=== PATIENT | male | born 1990 | race Caucasian/White ===

== ENCOUNTER 2020-09-06 19:19 | Emergency (ER) | payer SELFPAY ==
[2020-09-06] MEDS ORDERED: MORPHINE 4 MG/ML SYR ONE (20:07)
[2020-09-06] MEDS ORDERED: ONDANSETRON 4 MG (ODT) TAB ONE (20:07)
--- NOTE | 2020-09-06 20:26 | RAD REPORT ---
EXAM DESCRIPTION: RAD - Hand Right 3 View - 09/06/2020 8:15 pm CLINICAL HISTORY: Right hand pain status post injury FINDINGS: Comminuted fracture mid fifth metacarpal with mild to moderate displacement of fracture fr agments and angulation present at the fracture site. No dislocation.
[2020-09-06] MEDS ORDERED: LIDOCAINE 1% MPF 30 ML VIAL ONE (20:35)
--- NOTE | 2020-09-06 20:40 | ER ---
Nurse's Notes [facility] Name: Harmeet Calderón Age: 29 yrs Sex: Male : 1990 Arrival Date: 09/06/2020 Time: 19:21 Bed 8 Private MD: Diagnosis: Displaced fracture of base of other metacarpal bone Presentation: 09/06 19:32 Chief complaint: Patient states: he fell on his hand approx 30 mins ago injuring his bb right hand. Coronavirus screen: At this time, the client does not indicate any symptoms associated with coronavirus-19. Ebola Screen: No symptoms or risks identified at this time. Initial Sepsis Screen: Does the patient meet any 2 criteria? No. Patient's initial sepsis screen is negative. Does the patient have a suspected source of infection? No. Patient's initial sepsis screen is negative. Risk Assessment: Do you want to hurt yourself or someone else? Patient reports no desire to harm self or others. Onset of symptoms was September 06, 2020. 19:32 Method Of Arrival: Ambulatory bb 19:32 Acuity: WILFRID 4 bb Historical: - Allergies: 19:34 [place]; bb - Home Meds: 19:34 None [Active]; bb - PMHx: 19:34 meningitis; bb - PSHx: 19:34 Knee surgery; hip surgery; bb - Immunization history:: Adult Immunizations up to date. - Social history:: Smoking status: Patient reports the use of cigarette tobacco products, smokes one pack cigarettes per day. Screenin:43 Abuse screen: Denies threats or abuse. Nutritional screening: No deficits noted. ea Tuberculosis screening: No symptoms or risk factors identified. Fall Risk None identified. Assessment: 19:42 General: Appears in no apparent distress. Behavior is appropriate for age. Pain: ea Complains of pain in right hand. Neuro: Level of Consciousness is awake, alert, obeys commands, Oriented to person, place, time, situation. Cardiovascular: Patient's skin is warm and dry. Respiratory: Airway is patent Respiratory effort is even, unlabored, Respiratory pattern is regular, symmetrical. Derm: Skin is pink, warm \T\ dry. Musculoskeletal: Swelling present in medial aspect of right hand. 20:57 Reassessment: Patient and/or family updated on plan of care and expected duration. Pain ea level reassessed. Patient is alert, oriented x 3, equal unlabored respirations, skin warm/dry/pink. Discharge instruction given to patient, verbalized the understanding of instruction. Pt left ED ambulatory tolerating well. Vital Signs: 19:32 Weight 108.86 kg (R); Height 6 ft. 1 in. (185.42 cm) (R); Pain 3/10; bb 19:38 BP 150 / 118; Pulse 62; Resp 18; Temp 98.0; Pulse Ox 99% ; ea 20:30 BP 146 / 84; Pulse 79; Resp 18; Pulse Ox 99% ; ea 19:32 Body Mass Index 31.66 (108.86 kg, 185.42 cm) bb ED Course: 19:21 Patient arrived in ED. bp1 19:27 Eleuterio Collado PA is PHCP. jmm 19:27 Frank Curry MD is Attending Physician. jmm 19:33 Triage completed. bb 19:34 Arm band placed on Patient placed in an exam room, on a stretcher, on pulse oximetry. bb Family accompanied patient. 19:38 Angelina Angeles, RN is Primary Nurse. ea 19:44 Patient has correct armband on for positive identification. Bed in low position. Call ea light in reach. Adult w/ patient. 20:14 Hand Right 3 View XRAY In Process Unspecified. EDMS 20:39 Petar Mars MD is Referral Physician. jmm 20:53 Orthoglass splint: Ulnar gutter/Boxer splint applied on right forearm. 4 20:58 No provider procedures requiring assistance completed. Patient did not have IV access ea during this emergency room visit. Administered Medications: 19:57 Drug: Zofran (Ondansetron) 4 mg Route: PO; ea 20:44 Follow up: Response: No adverse reaction ea 19:58 Drug: morphine 4 mg {Note: RASS 0.} Route: IM; Site: left deltoid; ea 20:43 Follow up: Response: No adverse reaction; RASS: Alert and Calm (0) ea Outcome: 20:40 Discharge ordered by . jmm 20:58 Discharged to home ambulatory, with family. ea 20:58 Condition: stable 20:58 Discharge instructions given to patient, Instructed on discharge instructions, follow up and referral plans. medication usage, Demonstrated understanding of instructions, follow-up care, medications, Prescriptions given X 1. 20:59 Patient left the ED. ea Signatures: Dispatcher [employer] EDMS Eleuterio Collado PA PA jmm Ballard, Brenda RN RN Angelina Bownes RN RN ea Huhn, Donald [facility] Wendy Patrick [facility]
--- NOTE | 2020-09-06 20:41 | EDPHYS ---
Physician Documentation [facility] Name: Harmeet Calderón Age: 29 yrs Sex: Male : 1990 Arrival Date: 09/06/2020 Time: 19:21 Bed 8 Private MD: ED Physician Frank Curry HPI: 09/06 19:35 This 29 yrs old Male presents to ER via Ambulatory with complaints of Hand Injury. jmm 19:35 The patient or guardian reports injury, pain. Onset: The symptoms/episode jmm began/occurred acutely, just prior to arrival. Modifying factors: The symptoms are alleviated by nothing, the symptoms are aggravated by movement. Associated signs and symptoms: Pertinent negatives: decreased sensation distally, numbness distally, tingling distally. Patient complains of right hand pain after a fall which occurred just prior to arrival. Patient states he tripped and fell onto his right hand. Denies other injury. . Historical: - Allergies: 19:34 [place]; bb - Home Meds: 19:34 None [Active]; bb - PMHx: 19:34 meningitis; bb - PSHx: 19:34 Knee surgery; hip surgery; bb - Immunization history:: Adult Immunizations up to date. - Social history:: Smoking status: Patient reports the use of cigarette tobacco products, smokes one pack cigarettes per day. ROS: 19:35 Constitutional: Negative for fever, chills, and weight loss, Cardiovascular: Negative jmm for chest pain, palpitations, and edema, Respiratory: Negative for shortness of breath, cough, wheezing, and pleuritic chest pain. 19:35 MS/extremity: Positive for injury or acute deformity, pain. 19:35 All other systems are negative. Exam: 19:35 Constitutional: This is a well developed, well nourished patient who is awake, alert, jmm and in no acute distress. Head/Face: atraumatic. Eyes: EOMI, no conjunctival erythema appreciated ENT: Moist Mucus Membranes Neck: Trachea midline, Supple Chest/axilla: Normal chest wall appearance and motion. Cardiovascular: Regular rate and rhythm. No edema appreciated Respiratory: Normal respirations, no respiratory distress appreciated Abdomen/GI: Non distended, soft Back: Normal ROM Skin: General appearance color normal 19:35 Musculoskeletal/extremity: swelling noted to the right hand at the 5th mcp. 19:35 Skin: Appearance: Color: normal in color. 19:35 Neuro: Orientation: is normal, Mentation: is normal, Memory: is normal. 19:35 Psych: Behavior/mood is pleasant, cooperative. Vital Signs: 19:32 Weight 108.86 kg (R); Height 6 ft. 1 in. (185.42 cm) (R); Pain 3/10; bb 19:38 BP 150 / 118; Pulse 62; Resp 18; Temp 98.0; Pulse Ox 99% ; ea 20:30 BP 146 / 84; Pulse 79; Resp 18; Pulse Ox 99% ; ea 19:32 Body Mass Index 31.66 (108.86 kg, 185.42 cm) bb Procedures: 20:36 Splinting: Splint applied to right hand using ulnar gutter. applied by tech. Examined jmm by me, post splint application: neurovascular intact, 2+ distal pulses palpable, brisk capillary refill noted, Patient tolerated well. MDM: 19:32 Patient medically screened. jmm 20:37 Data reviewed: vital signs, nurses notes. Counseling: I had a detailed discussion with ritu the patient and/or guardian regarding: the historical points, exam findings, and any diagnostic results supporting the discharge/admit diagnosis, radiology results, the need for outpatient follow up, to return to the emergency department if symptoms worsen or persist or if there are any questions or concerns that arise at home. ED course: Hemtoma block using 1% lidocaine provided partient relief of pain. Betadine was initially applied and 25 gauge needle inserted using sterile technique. Blood was aspirated and 1 ml of lidocaine was injected. Patient was advised of the need to follow up with hand surgery within 1 week for further evaluation. Patient was otherwise given strict return precautions. patient understood and agrees with the plan of care. . 09/06 19:47 Order name: Hand Right 3 View XRAY; Complete Time: 20:40 snw 09/06 20:20 Order name: Ulnar Gutter splint; Complete Time: 20:54 ritu Administered Medications: 19:57 Drug: Zofran (Ondansetron) 4 mg Route: PO; ea 20:44 Follow up: Response: No adverse reaction ea 19:58 Drug: morphine 4 mg {Note: RASS 0.} Route: IM; Site: left deltoid; ea 20:43 Follow up: Response: No adverse reaction; RASS: Alert and Calm (0) lauryn Disposition: 09/07 05:20 Co-signature as Attending Physician, Frank Curry MD I agree with the assessment and tw4 plan of care. Disposition: 09/06/20 20:40 Discharged to Home. Impression: Displaced fracture of base of other metacarpal bone. - Condition is Stable. - Discharge Instructions: Metacarpal Fracture. - Prescriptions for Ultracet 37.5- 325 mg Oral Tablet - take 1 tablet by ORAL route every 6 hours - for up to 5 days; do not exceed 8 tablets per day.; 20 tablet. - Medication Reconciliation Form, Thank You Letter, Antibiotic Education, Prescription Opioid Use, Work release form form. - Follow up: Private Physician; When: 2 - 3 days; Reason: Recheck today's complaints, Continuance of care, Re-evaluation by your physician. Follow up: Petar Mars MD; When: 2 - 3 days; Reason: Recheck today's complaints, Continuance of care, Re-evaluation by your physician. - Notes: No heavy lifting until 09/11/20 Signatures: Dispatcher [employer] EDMS Eleuterio Collado PA PA jmm Ballard, Brenda, RN RN Angelina Bowens RN RN ea Wadley, Terrence, MD MD tw4 Corrections: (The following items were deleted from the chart) 09/06 20:59 20:40 09/06/2020 20:40 Discharged to Home. Impression: Displaced fracture of base of ea other metacarpal bone. Condition is Stable. Forms are Medication Reconciliation Form, Thank You Letter, Antibiotic Education, Prescription Opioid Use. Follow up: Private Physician; When: 2 - 3 days; Reason: Recheck today's complaints, Continuance of care, Re-evaluation by your physician. Follow up: Petar Mars; When: 2 - 3 days; Reason: Recheck today's complaints, Continuance of care, Re-evaluation by your physician. ritu
[2020-09-06 21:14] VITALS: TEMP 98; O2SAT 99
[2020-09-06 21:16] VITALS: BP 146/84
== END 2020-09-06 20:59 | disposition home or self-care (01) ==
LOC: ER 19:19
PROC: 2W3CX1Z Immobilization of Right Lower Arm using Splint (ICD-10-PCS; principal; 2020-09-06)
DX: S62.316A Displaced fracture of base of fifth metacarpal bone, right hand, initial encounter for closed fracture (principal); W01.0XXA Fall on same level from slipping, tripping and stumbling without subsequent striking against object, initial encounter; Y93.9 Activity, unspecified; Y92.9 Unspecified place or not applicable; Z88.5 Allergy status to narcotic agent; F17.210 Nicotine dependence, cigarettes, uncomplicated
CPT/HCPCS: 96372; 99284

== ENCOUNTER 2020-09-08 21:16 | Emergency (ER) | payer SELFPAY ==
--- NOTE | 2020-09-08 22:55 | ER ---
Nurse's Notes [facility] Name: Harmeet Calderón Age: 29 yrs Sex: Male : 1990 Arrival Date: 09/08/2020 Time: 21:18 Bed 13 Private MD: Diagnosis: Encounter for fitting and adjustment of other devices Presentation: 09/08 21:29 Chief complaint: Patient states: Here on Wednesday for a broken finger. States the ll1 swelling to his hand has gotten worse since splint placement. Fingers "turned blue" about 30 min. NEGATIVE SPOTTER. Tried loosening the guillermo wrap without relief. Denies pain at this time. Coronavirus screen: Client denies travel out of the [place] in the last 14 days. At this time, the client does not indicate any symptoms associated with coronavirus-19. Ebola Screen: Patient denies travel to an Ebola-affected area in the 21 days before illness onset. Initial Sepsis Screen: Does the patient meet any 2 criteria? No. Patient's initial sepsis screen is negative. Does the patient have a suspected source of infection? Yes: Bone or joint infection. Risk Assessment: Do you want to hurt yourself or someone else? Patient reports no desire to harm self or others. Onset of symptoms was September 08, 2020. 21:29 Method Of Arrival: Ambulatory ll1 21:29 Acuity: WILFRID 3 ll1 Historical: - Allergies: 21:32 [place]; ll1 - PMHx: 21:32 meningitis; ll1 - PSHx: 21:32 Knee surgery; hip surgery; ll1 - Immunization history:: Flu vaccine is not up to date. - Social history:: Smoking status: Patient denies any tobacco usage or history of. Screenin:00 Abuse screen: Denies threats or abuse. Denies injuries from another. aj1 22:00 Nutritional screening: No deficits noted. Tuberculosis screening: No symptoms or risk aj1 factors identified. 23:07 Fall Risk None identified. aj1 Assessment: 22:00 General: Appears in no apparent distress. uncomfortable, Behavior is calm, cooperative, aj1 appropriate for age. Pain: Complains of pain in right hand. Neuro: Level of Consciousness is awake, alert, obeys commands, Oriented to person, place, time, situation. Cardiovascular: Patient's skin is warm and dry. Respiratory: Airway is patent Respiratory effort is even, unlabored, Respiratory pattern is regular, symmetrical. GI: No signs and/or symptoms were reported involving the gastrointestinal system. : No signs and/or symptoms were reported regarding the genitourinary system. EENT: No signs and/or symptoms were reported regarding the EENT system. Derm: Skin is pink, warm \\T\\ dry. Musculoskeletal: Swelling present in right hand. Injury Description: Bruise sustained to right hand is purple. 23:06 Reassessment: Patient appears in no apparent distress at this time. No changes from aj1 previously documented assessment. Patient and/or family updated on plan of care and expected duration. Pain level reassessed. Patient is alert, oriented x 3, equal unlabored respirations, skin warm/dry/pink. Vital Signs: 21:29 BP 118 / 68; Pulse 61; Resp 17; Temp 98.1; Pulse Ox 97% ; Weight 108.86 kg; Height 6 ll1 ft. 1 in. (185.42 cm); Pain 0/10; 21:29 Body Mass Index 31.66 (108.86 kg, 185.42 cm) 1 ED Course: 21:18 Patient arrived in ED. ag3 21:32 Triage completed. ll1 21:32 Arm band placed on Patient placed in an exam room, on a stretcher. ll1 21:37 Frank Curry MD is Attending Physician. tw4 21:44 Savanna Watters, WALTER is Primary Nurse. aj1 21:56 Eleuterio Collado PA is PHCP. [facility] 22:00 Patient has correct armband on for positive identification. Bed in low position. Call [facility] light in reach. 22:00 No provider procedures requiring assistance completed. Patient did not have IV access aj during this emergency room visit. 22:51 Guillermo wrap to Right hand and Right wrist Orthoglass splint: Ulnar gutter/Boxer splint jp3 applied on right forearm. Administered Medications: No medications were administered Outcome: 22:55 Discharge ordered by . ritu 23:06 Discharged to home ambulatory, with family. aj1 23:06 Condition: good 23:06 Discharge instructions given to patient, Instructed on discharge instructions, follow up and referral plans. medication usage, Demonstrated understanding of instructions, follow-up care, medications, Prescriptions given X 1. 23:07 Patient left the ED. aj1 Signatures: Savanna Watters RN RN aj1 Eleuterio Collado PA PA jmm Wadley, Terrence, MD MD tw4 Brooks Wise jp3 [place] Wiley 3 Laurie Soriano, RN RN ll1 Corrections: (The following items were deleted from the chart) : 23:04 General: Appears in no apparent distress. uncomfortable, Behavior is calm, aj1 cooperative, appropriate for age, aj 23:04 Pain: [facility] Neuro: Level of Consciousness is awake, alert, obeys commands, Oriented to aj1 person, place, time, situation, aj 23:04 Cardiovascular: Patient's skin is warm and dry. aj1 [facility] 23:04 Respiratory: Airway is patent Respiratory effort is even, unlabored, Respiratory aj1 pattern is regular, symmetrical, aj 23:04 GI: No signs and/or symptoms were reported involving the gastrointestinal system. aj1 aj 23:04 : No signs and/or symptoms were reported regarding the genitourinary system. ajj1 : 23:04 EENT: No signs and/or symptoms were reported regarding the EENT system. aj1 [facility] 23:04 Derm: Skin is pink, warm \\T\\ dry. aj1 [facility] 23:04 Musculoskeletal: Swelling present in [facility] 23:04 Injury Description: Bruise sustained to right hand is purple, aj1 aj
--- NOTE | 2020-09-08 22:55 | EDPHYS ---
Physician Documentation [facility] Name: Harmeet Calderón Age: 29 yrs Sex: Male : 1990 Arrival Date: 09/08/2020 Time: 21:18 Bed 13 Private MD: ED Physician Frank Curry HPI: 09/08 21:37 This 29 yrs old Male presents to ER via Ambulatory with complaints of [place] hand. jmm 21:37 Onset: The symptoms/episode began/occurred acutely, 2 day(s) ago. Associated signs and jmm symptoms: Pertinent negatives: fever. This is a 29 year old male that presents to the ED with complaints of right hand pain. Patient suffered a fracture to his 5th metacarpal this past Wednesday. Patient became concerned today when he noticed bruising along with increased swelling. Historical: - Allergies: 21:32 [place]; ll1 - PMHx: 21:32 meningitis; ll1 - PSHx: 21:32 Knee surgery; hip surgery; ll1 - Immunization history:: Flu vaccine is not up to date. - Social history:: Smoking status: Patient denies any tobacco usage or history of. ROS: 21:37 Constitutional: Negative for fever, chills, and weight loss, Cardiovascular: Negative jmm for chest pain, palpitations, and edema, Respiratory: Negative for shortness of breath, cough, wheezing, and pleuritic chest pain. 21:37 MS/extremity: Positive for pain, swelling. 21:37 Skin: Positive for ecchymosis. 21:37 All other systems are negative. Exam: 21:37 Constitutional: This is a well developed, well nourished patient who is awake, alert, jmm and in no acute distress. Head/Face: atraumatic. Eyes: EOMI, no conjunctival erythema appreciated ENT: Moist Mucus Membranes Neck: Trachea midline, Supple Chest/axilla: Normal chest wall appearance and motion. Cardiovascular: Regular rate and rhythm. No edema appreciated Respiratory: Normal respirations, no respiratory distress appreciated Abdomen/GI: Non distended, soft Back: Normal ROM 21:37 Skin: ecchymosis noted to the mcp region of the right hand, no erythema or induration noted to the hand. 21:37 Neuro: Orientation: is normal, Mentation: is normal, Memory: is normal. 21:37 Psych: Behavior/mood is pleasant, cooperative. Vital Signs: 21:29 BP 118 / 68; Pulse 61; Resp 17; Temp 98.1; Pulse Ox 97% ; Weight 108.86 kg; Height 6 ll1 ft. 1 in. (185.42 cm); Pain 0/10; 21:29 Body Mass Index 31.66 (108.86 kg, 185.42 cm) ll1 Procedures: 22:53 Splinting: Splint applied to right hand using ulnar gutter. applied by tech. Examined jmm by me, post splint application: neurovascular intact, 2+ distal pulses palpable, brisk capillary refill noted, Patient tolerated well. MDM: 21:37 Patient medically screened. tw4 22:53 Data reviewed: vital signs, nurses notes. Counseling: I had a detailed discussion with ritu the patient and/or guardian regarding: the historical points, exam findings, and any diagnostic results supporting the discharge/admit diagnosis, the need for outpatient follow up, to return to the emergency department if symptoms worsen or persist or if there are any questions or concerns that arise at home. ED course: Compartments are soft, < 2 sec dist cap refill, I do not suspect compartment syndrome at this time. Patient advised to follow up with hand surgery and otherwise given strict return precautions. Patient understood and agrees with the plan of care. . 09/08 21:57 Order name: Ulnar Gutter splint; Complete Time: 22:52 ritu Administered Medications: No medications were administered Disposition: 09/09 06:59 Co-signature as Attending Physician, Frank Curry MD I agree with the assessment and tw4 plan of care. Disposition: 09/08/20 22:55 Discharged to Home. Impression: Encounter for fitting and adjustment of other devices. - Condition is Stable. - Discharge Instructions: Cast or Splint Care, Adult, Metacarpal Fracture. - Prescriptions for Valium 5 mg Oral Tablet - take 1 tablet by ORAL route every 8 hours As needed; 20 tablet. - Medication Reconciliation Form, Thank You Letter, Antibiotic Education, Prescription Opioid Use form. - Follow up: Private Physician; When: 2 - 3 days; Reason: Recheck today's complaints, Continuance of care, Re-evaluation by your physician. Signatures: Savanna Watters RN RN aj1 Eleuterio Collado PA PA jmm Wadley, Terrence, MD MD tw4 Laurie Soriano, RN RN ll1 Corrections: (The following items were deleted from the chart) 09/08 23:07 22:55 09/08/2020 22:55 Discharged to Home. Impression: Encounter for fitting and aj1 adjustment of other devices. Condition is Stable. Forms are Medication Reconciliation Form, Thank You Letter, Antibiotic Education, Prescription Opioid Use. Follow up: Private Physician; When: 2 - 3 days; Reason: Recheck today's complaints, Continuance of care, Re-evaluation by your physician. ritu
[2020-09-09 00:31] VITALS: BP 118/68; TEMP 98.1; O2SAT 97
== END 2020-09-08 23:07 | disposition home or self-care (01) ==
LOC: ER 21:16
PROC: 2W3CX1Z Immobilization of Right Lower Arm using Splint (ICD-10-PCS; principal; 2020-09-08)
DX: S62.306G Unspecified fracture of fifth metacarpal bone, right hand, subsequent encounter for fracture with delayed healing (principal); Z88.5 Allergy status to narcotic agent
CPT/HCPCS: 99283

== ENCOUNTER 2021-05-10 18:59 | Emergency (ER) | payer SELFPAY ==
--- NOTE | 2021-05-10 21:39 | EDPHYS ---
Physician Documentation [facility] Name: Harmeet Calderón Age: 30 yrs Sex: Male : 1990 Arrival Date: 05/10/2021 Time: 19:00 Bed 25 Private MD: ED Physician Semaj Yepez HPI: 05/10 20:42 This 30 yrs old Male presents to ER via Ambulatory with complaints of Sore Throat. pm1 20:42 The patient presents with sore throat. The patient describes throat pain as constant. pm1 Onset: The symptoms/episode began/occurred yesterday. 20:42 Severity of symptoms: in the emergency department the symptoms are actually worse. pm1 Modifying factors: The symptoms are alleviated by nothing, the symptoms are aggravated by swallowing, Patient's oral intake status: good unaware of sick contact. Associated signs and symptoms: Pertinent negatives cough, fever, headache, nausea, vomiting. The patient has not recently seen a physician. Historical: - Allergies: 19:37 [place]; ca1 - Home Meds: 19:37 None [Active]; ca1 - PMHx: 19:37 meningitis; ca1 - PSHx: 19:37 face surgery; head surgery; knee surgery; ca1 - Immunization history:: Client reports having NOT received the Covid vaccine. Flu vaccine is not up to date. - Social history:: Smoking status: Patient reports the use of cigarette tobacco products, smokes one-half pack cigarettes per day. ROS: 20:42 Constitutional: Negative for fever, chills, and weight loss. pm1 20:42 Neck: Negative for injury, pain, and swelling, Cardiovascular: Negative for chest pain, palpitations, and edema, Respiratory: Negative for shortness of breath, cough, wheezing, and pleuritic chest pain, Abdomen/GI: Negative for abdominal pain, nausea, vomiting, diarrhea, and constipation, Skin: Negative for injury, rash, and discoloration, Neuro: Negative for headache, weakness, numbness, tingling, and seizure. 20:42 ENT: Positive for sore throat, Negative for ear pain. 20:42 All other systems are negative. Exam: 20:42 Constitutional: This is a well developed, well nourished patient who is awake, alert, pm1 and in no acute distress. Head/Face: Normocephalic, atraumatic. 20:42 Skin: Warm, dry with normal turgor. Normal color with no rashes, no lesions, and no evidence of cellulitis. MS/ Extremity: Pulses equal, no cyanosis. Neurovascular intact. Full, normal range of motion. 20:42 Eyes: Exam is negative for acute changes, Periorbital structures: appear normal, Extraocular movements: intact throughout, Conjunctiva: no acute changes, no injection. 20:42 ENT: Mouth: is normal, no acute changes, Lips: normal, Oral mucosa: normal, pink and intact, moist, Posterior pharynx: Tonsils: bilaterally enlarged, with erythema, with exudate, peritonsillar mass, is not appreciated, pooling of secretions, is not appreciated. 20:42 Cardiovascular: Exam negative for acute changes, Rate: normal, Rhythm: regular, Pulses: no pulse deficits are appreciated. 20:42 Respiratory: Exam negative for acute changes, respiratory distress, shortness of breath. 20:42 Neuro: Exam negative for acute changes, Orientation: is normal, Mentation: is normal, Motor: is normal, moves all fours. Vital Signs: 19:35 BP 117 / 78; Pulse 93; Resp 16; Temp 97.6(TE); Pulse Ox 98% on R/A; Weight 106.59 kg ca1 (R); Height 6 ft. 1 in. (185.42 cm) (R); Pain 3/10; 21:52 BP 130 / 65; Pulse 84; Resp 16; Temp 98.4(O); Pulse Ox 99% on R/A; lp1 19:35 Body Mass Index 31.00 (106.59 kg, 185.42 cm) ca1 MDM: 20:42 Patient medically screened. pm1 21:38 Data reviewed: vital signs. Data interpreted: Pulse oximetry: on room air is 98 %. pm1 Interpretation: normal. Counseling: I had a detailed discussion with the patient and/or guardian regarding: the historical points, exam findings, and any diagnostic results supporting the discharge/admit diagnosis, lab results, the need for outpatient follow up, to return to the emergency department if symptoms worsen or persist or if there are any questions or concerns that arise at home. 05/10 19:38 Order name: Strep ca1 05/10 19:38 Order name: Group A Streptococcus Rapid Sc; Complete Time: 20:42 EDMS Administered Medications: 21:23 Drug: Bicillin L-A (penicillin G Benzathine) 1.2 million units Route: IM; Site: right ca1 gluteus; 21:52 Follow up: Response: No adverse reaction lp1 Disposition: 05/11 07:26 Co-signature as Attending Physician, Semaj Yepez MD. 7 Disposition Summary: 05/10/21 21:39 Discharge Ordered Location: Home pm1 Problem: new pm1 Symptoms: have improved pm1 Condition: Stable pm1 Diagnosis - Streptococcal pharyngitis pm1 Followup: pm1 - With: Emergency Department - When: As needed - Reason: Worsening of condition Followup: pm1 - With: Private Physician - When: 2 - 3 days - Reason: Recheck today's complaints, Continuance of care, Re-evaluation by your physician Discharge Instructions: - Discharge Summary Sheet pm1 - Strep Throat, Adult pm1 Forms: - Medication Reconciliation Form pm1 - Thank You Letter pm1 - Antibiotic Education pm1 - Prescription Opioid Use pm1 Signatures: Dispatcher [employer] EDMS Ton Sage, UNIT CLERK UNIT CLERK pm1 My Nino, RN RN ca1 Semaj Yepez MD MD [facility] Rola Wells RN [facility]
--- NOTE | 2021-05-10 21:39 | ER ---
Nurse's Notes [facility] Name: Harmeet Calderón Age: 30 yrs Sex: Male : 1990 Arrival Date: 05/10/2021 Time: 19:00 Bed 25 Private MD: Diagnosis: Streptococcal pharyngitis Presentation: 05/10 19:35 Chief complaint: Patient states: Sore throat since last night. Tonsils swollen on the L ca1 side. Coronavirus screen: Client denies travel out of the [place] in the last 14 days. sore throat, Client presents with at least one sign or symptom that may indicate coronavirus-19. Standard/surgical mask placed on the client. Provider contacted for isolation considerations. Ebola Screen: Patient negative for fever greater than or equal to 101.5 degrees Fahrenheit, and additional compatible Ebola Virus Disease symptoms Patient denies exposure to infectious person. Patient denies travel to an Ebola-affected area in the 21 days before illness onset. No symptoms or risks identified at this time. Initial Sepsis Screen: Does the patient meet any 2 criteria? No. Patient's initial sepsis screen is negative. Does the patient have a suspected source of infection? No. Patient's initial sepsis screen is negative. Risk Assessment: Do you want to hurt yourself or someone else? Patient reports no desire to harm self or others. Onset of symptoms was May 10, 2021. 19:35 Method Of Arrival: Ambulatory ca1 19:35 Acuity: WILFRID 4 ca1 Triage Assessment: 19:37 EENT: Throat is reddened has patchy exudate has enlarged tonsils on left. ca1 Historical: - Allergies: 19:37 [place]; ca1 - Home Meds: 19:37 None [Active]; ca1 - PMHx: 19:37 meningitis; ca1 - PSHx: 19:37 face surgery; head surgery; knee surgery; ca1 - Immunization history:: Client reports having NOT received the Covid vaccine. Flu vaccine is not up to date. - Social history:: Smoking status: Patient reports the use of cigarette tobacco products, smokes one-half pack cigarettes per day. Screenin:15 Abuse screen: Denies threats or abuse. Denies injuries from another. Nutritional ca1 screening: No deficits noted. Tuberculosis screening: No symptoms or risk factors identified. Fall Risk None identified. Assessment: 20:15 General: Appears in no apparent distress. comfortable, Behavior is calm, cooperative, ca1 appropriate for age. Pain: Complains of pain in throat Pain currently is 4 out of 10 on a pain scale. at worst was 9 out of 10 on a pain scale. Pain began 1 day ago. Aggravated by swallowing. Neuro: Level of Consciousness is awake, alert, obeys commands, Oriented to person, place, time, situation. Respiratory: Airway is patent Respiratory effort is even, unlabored, Respiratory pattern is regular, symmetrical, Breath sounds are clear bilaterally. EENT: Throat is reddened has patchy exudate has enlarged tonsils on left. Derm: Skin is intact, is healthy with good turgor, Skin is pink, warm \T\ dry. Musculoskeletal: Circulation, motion, and sensation intact. Capillary refill < 3 seconds. 20:34 Reassessment: Patient is alert, oriented x 3, equal unlabored respirations, skin bb warm/dry/pink. Vital Signs: 19:35 BP 117 / 78; Pulse 93; Resp 16; Temp 97.6(TE); Pulse Ox 98% on R/A; Weight 106.59 kg ca1 (R); Height 6 ft. 1 in. (185.42 cm) (R); Pain 3/10; 21:52 BP 130 / 65; Pulse 84; Resp 16; Temp 98.4(O); Pulse Ox 99% on R/A; lp1 19:35 Body Mass Index 31.00 (106.59 kg, 185.42 cm) ca1 ED Course: 19:00 Patient arrived in ED. as 19:36 Triage completed. ca1 19:37 Arm band placed on right wrist. ca1 20:15 My Nino, RN is Primary Nurse. ca1 20:15 Patient has correct armband on for positive identification. Bed in low position. Call ca1 light in reach. Side rails up X 1. Pulse ox on. NIBP on. Warm blanket given. 20:16 Strep Sent. ca1 20:30 oTn Sage NP is PHCP. pm1 20:30 Semaj Yepez MD is Attending Physician. pm1 21:52 No provider procedures requiring assistance completed. Patient did not have IV access lp1 during this emergency room visit. Administered Medications: 21:23 Drug: Bicillin L-A (penicillin G Benzathine) 1.2 million units Route: IM; Site: right ca1 gluteus; 21:52 Follow up: Response: No adverse reaction lp1 Outcome: 21:39 Discharge ordered by MD. pm1 21:52 Discharged to home ambulatory, with family. lp1 21:52 Condition: good 21:52 Discharge instructions given to patient, Instructed on discharge instructions, follow up and referral plans. Demonstrated understanding of instructions, follow-up care. 21:53 Patient left the ED. lp1 Signatures: Sangeeta Pablo Brenda, RN RN bb Rola Wells RN RN lp1 Ton Sage, WELT CUTTER WELT CUTTER pm1 My Nino RN RN ca1 Corrections: (The following items were deleted from the chart) 19:39 19:37 EENT: Throat is reddened has enlarged tonsils on left ca1 ca1
[2021-05-10] MEDS ORDERED: PEN G BENZ LA 1.2MU/2ML SYRINGE IM ONE ×2 (21:41→21:46)
[2021-05-10 21:59] VITALS: BP 130/65; TEMP 98.4; O2SAT 99
== END 2021-05-10 21:53 | disposition home or self-care (01) ==
LOC: ER 18:59
DX: J02.0 Streptococcal pharyngitis (principal); F17.210 Nicotine dependence, cigarettes, uncomplicated; Z88.5 Allergy status to narcotic agent
CPT/HCPCS: 87081; 96372; 99283; J0561

== ENCOUNTER 2021-06-07 21:03 | Emergency (ER) | payer SELFPAY ==
[2021-06-07] MEDS ORDERED: CODEINE 30MG/APAP 300MG TAB ONE (22:35)
[2021-06-08] MEDS ORDERED: BUPIVACAINE 0.5% PF 10 ML VIAL ONE (00:17)
[2021-06-08] MEDS ORDERED: LIDOCAINE 1% W/EPI 1:100,000 MDV 20 ML VIAL ONE (00:17)
[2021-06-08] MEDS ORDERED: DOXYCYCLINE 100 MG CAP PO ONE (00:37)
[2021-06-08] MEDS ORDERED: MEPERIDINE HCL 25 MG/ML SYR ONE (00:37)
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
[2021-06-08 01:12] VITALS: BP 146/84; TEMP 98; O2SAT 98
--- NOTE | 2021-06-08 08:38 | RAD REPORT ---
EXAM DESCRIPTION: RAD - Tib Fib Right - 06/07/2021 10:50 pm CLINICAL HISTORY: PAIN COMPARISON: No comparisons FINDINGS: No fracture of the tibia or fibula is identified. No radiopaque foreign body. IMPRESSION: No acute osseus abnormality involving the tibia or fibula.
--- NOTE | 2021-06-08 08:39 | RAD REPORT ---
EXAM DESCRIPTION: RAD - Foot Right 3 View - 06/07/2021 10:50 pm CLINICAL HISTORY: PAIN COMPARISON: No comparisons FINDINGS: No fracture of the right foot is identified. No malalignment. No radiopaque foreign body. IMPRESSION: No acute osseus abnormality involving the right foot.
== END 2021-06-08 00:55 | disposition home or self-care (01) ==
LOC: ER 21:03
DX: S81.831A Puncture wound without foreign body, right lower leg, initial encounter (principal); F17.210 Nicotine dependence, cigarettes, uncomplicated; Z88.5 Allergy status to narcotic agent
CPT/HCPCS: 96372; 99283; J2175

== ENCOUNTER 2023-09-15 23:57 | Emergency (ER) | payer OTHER ==
[2023-09-16] MEDS ORDERED: KETOROLAC 30 MG/ML INJ ONE (01:33)
--- NOTE | 2023-09-16 02:22 | ER ---
Nurse's Notes [facility] Name: Harmeet Calderón Age: 32 yrs Sex: Male : 1990 Arrival Date: 09/15/2023 Time: 23:57 Bed 5 Private MD: Diagnosis: Pain in left knee Presentation: 09/16 00:10 Chief complaint: Patient states: HEARD "POP" IN LEFT KNEE ON STAIRS THIS EV ENING. bp Coronavirus screen: At this time, the client does not indicate any symptoms associated with coronavirus-19. Ebola Screen: No symptoms or risks identified at this time. Initial Sepsis Screen: Does the patient meet any 2 criteria? No. Patient's initial sepsis screen is negative. Does the patient have a suspected source of infection? No. Patient's initial sepsis screen is negative. Risk Assessment: Do you want to hurt yourself or someone else? Patient reports no desire to harm self or others. Onset of symptoms was September 15, 2023 at 21:30. 00:10 Method Of Arrival: Ambulatory bp 00:10 Acuity: WILFRID 4 bp Triage Assessment: 00:12 General: Appears in no apparent distress. Behavior is calm, cooperative, appropriate bp for age. Pain: Complains of pain in left knee. Historical: - Allergies: 00:12 Panora; bp - PMHx: 00:12 Anxiety; meningitis; panic attack; bp - PSHx: 00:12 face surgery; head surgery; knee surgery; Left Hip Sx; bp - Immunization history:: Adult Immunizations up to date. - Social history:: Smoking status: Patient denies any tobacco usage or history of. Screenin:34 [facility] ED Fall Risk Assessment (Adult) Score/Fall Risk Level 0 - 2 = Low Risk. Abuse as6 screen: Denies threats or abuse. Denies injuries from another. Nutritional screening: No deficits noted. Tuberculosis screening: No symptoms or risk factors identified. Assessment: 01:33 General: Appears in no apparent distress. Behavior is calm, cooperative. Pain: as6 Complains of pain in left knee. Neuro: Level of Consciousness is awake, alert, obeys commands, Oriented to person, place, time, situation. Cardiovascular: Capillary refill < 3 seconds Patient's skin is warm and dry. Respiratory: Respiratory effort is even, unlabored, Respiratory pattern is regular, symmetrical. GI: No deficits noted. No signs and/or symptoms were reported involving the gastrointestinal system. : No deficits noted. No signs and/or symptoms were reported regarding the genitourinary system. EENT: No deficits noted. No signs and/or symptoms were reported regarding the EENT system. Derm: Skin is intact, is healthy with good turgor. Musculoskeletal: Range of motion: limited in left knee Reports pain in left knee. 02:30 Reassessment: Patient and/or family updated on plan of care and expected duration. Pain ha1 level reassessed. Patient is alert, oriented x 3, equal unlabored respirations, skin warm/dry/pink. 03:04 Reassessment: PT DC HOME AMBULATORY WITH FAMILY. bp Vital Signs: 00:10 BP 139 / 88; Pulse 62; Resp 16; Temp 98; Pulse Ox 97% ; Weight 104.33 kg; Height 6 ft. bp 1 in. ; 01:32 BP 111 / 82; Pulse 57; Resp 18 S; Pulse Ox 97% on R/A; as6 03:03 BP 110 / 79; Pulse 60; Resp 18 S; Pulse Ox 98% on R/A; ha1 00:10 Body Mass Index 30.34 (104.33 kg, 185.42 cm) bp ED Course: 00:00 Patient arrived in ED. jj6 00:04 Hermelindo Barreto PA is PHCP. cp 00:04 Oscar Dubose MD is Attending Physician. cp 00:11 Triage completed. bp 00:14 Justin Mcdonald, WALTER is Primary Nurse. as6 01:20 XRAY Knee LEFT 3 view In Process Unspecified. EDMS 01:34 Bed in low position. Call light in reach. as6 01:34 Arm band placed on. as6 02:20 Bobby Rouse MD is Referral Physician. cp 03:04 No provider procedures requiring assistance completed. Patient did not have IV access ha1 during this emergency room visit. Administered Medications: 01:23 Drug: Ketorolac IM 30 mg IM once Route: IM; Site: right deltoid; as6 03:04 Follow up: Response: No adverse reaction bp Medication: 01:34 VIS not applicable for this client. as6 Outcome: 02:21 Discharge ordered by . cp 03:04 Discharged to home ambulatory, with family, bp 03:04 Condition: stable 03:04 Discharge instructions given to patient, Instructed on discharge instructions, follow up and referral plans. medication usage, Demonstrated understanding of instructions, follow-up care, medications, Prescriptions given X 1, 03:05 Patient left the ED. bp Signatures: Dispatcher [employer] EDMS Hermelindo Barreto PA PA cp Peltier, Brian, RN RN bp Katelynn Angel jj6 Justin Mcdonald RN RN as6 Risa Mills RN RN ha1
--- NOTE | 2023-09-16 02:22 | EDPHYS ---
Physician Documentation [facility] Name: Harmeet Calderón Age: 32 yrs Sex: Male : 1990 Arrival Date: 09/15/2023 Time: 23:57 Bed 5 Private MD: ED Physician Oscar Dubose HPI: 09/16 01:20 This 32 yrs old Male presents to ER via Ambulatory with complaints of Knee Injury, Knee cp Pain. 01:20 The patient presents with an injury, pain, that is acute. The complaints affect the cp left knee. Context: while walking down stairs, left knee "popped" and gave out. Historical: - Allergies: 00:12 [place]; bp - PMHx: 00:12 Anxiety; meningitis; panic attack; bp - PSHx: 00:12 face surgery; head surgery; knee surgery; Left Hip Sx; bp - Immunization history:: Adult Immunizations up to date. - Social history:: Smoking status: Patient denies any tobacco usage or history of. ROS: 01:25 MS/extremity: Positive for pain, tenderness, of the left knee, Negative for deformity, cp paresthesias, 01:25 Constitutional: Negative for body aches, chills, fever, cp 01:25 Neck: Negative for pain with movement, pain at rest, 01:25 Respiratory: Negative for cough, shortness of breath, wheezing, 01:25 Abdomen/GI: Negative for abdominal pain, nausea, vomiting, diarrhea, 01:25 Back: Negative for pain at rest, pain with movement, 01:25 All other systems are negative, Exam: 01:30 Constitutional: The patient appears in no acute distress, alert, awake, non-toxic, well cp developed, well nourished, uncomfortable, 01:30 Head/Face: Normocephalic, atraumatic. cp 01:30 Neck: ROM/movement: is normal, is supple, without pain, no range of motions limitations, 01:30 Chest/axilla: Inspection: normal, 01:30 Cardiovascular: Rate: normal, Rhythm: regular, 01:30 Respiratory: the patient does not display signs of respiratory distress, Respirations: normal, no use of accessory muscles, no retractions, labored breathing, is not present, 01:30 Abdomen/GI: Exam negative for discomfort, distension, guarding, Inspection: abdomen appears normal, 01:30 Back: pain, is absent, ROM is normal, 01:30 Musculoskeletal/extremity: Extremities: grossly normal except: noted in the left knee: pain, overlying skin intact, warm and dry, There is no evidence of decreased ROM, deformity, ROM: limited passive range of motion due to pain, in the left knee, Perfusion: the extremity is normally perfused throughout, the left leg Sensation intact. Vital Signs: 00:10 BP 139 / 88; Pulse 62; Resp 16; Temp 98; Pulse Ox 97% ; Weight 104.33 kg; Height 6 ft. bp 1 in. ; 01:32 BP 111 / 82; Pulse 57; Resp 18 S; Pulse Ox 97% on R/A; as6 03:03 BP 110 / 79; Pulse 60; Resp 18 S; Pulse Ox 98% on R/A; ha1 00:10 Body Mass Index 30.34 (104.33 kg, 185.42 cm) bp MDM: 00:15 Patient medically screened. cp 01:20 Differential diagnosis: dislocation, closed fracture, sprain, ligament injury. cp 02:20 Data reviewed: vital signs, nurses notes, radiologic studies, plain films. cp 02:20 Independent interpretation of the following test(s) in the Emergency Department X-Ray: cp My interpretation is images of left knee negative for fracture. Counseling: I had a detailed discussion with the patient and/or guardian regarding the historical points, exam findings, and any diagnostic results supporting the discharge/admit diagnosis, radiology results, the need for outpatient follow up, a orthopedic surgeon, to return to the emergency department if symptoms worsen or persist or if there are any questions or concerns that arise at home. Response to treatment: the patient's symptoms have mildly improved after treatment, and as a result, I will discharge patient. 09/16 01:05 Order name: XRAY Knee LEFT 3 view cp Administered Medications: :23 Drug: Ketorolac IM 30 mg IM once Route: IM; Site: right deltoid; as6 03:04 Follow up: Response: No adverse reaction bp Disposition Summary: 09/16/23 02:21 Discharge Ordered Notes: Location: Home cp Problem: new cp Symptoms: have improved cp Condition: Stable cp Diagnosis - Pain in left knee cp Followup: cp - With: Bobby Rouse MD - When: 5 - 6 days - Reason: Recheck today's complaints Discharge Instructions: - Discharge Summary Sheet cp - Elastic Bandage and RICE Therapy cp - How to Use a Knee Brace cp - Acute Knee Pain, Adult cp Forms: - Medication Reconciliation Form cp - Thank You Letter cp - Antibiotic Education cp - Prescription Opioid Use cp - Patient Portal Instructions cp - Leadership Thank You Letter cp Prescriptions: - Diclofenac Sodium 75 mg Oral Tablet Sustained Release - take 1 tablet ORAL route 2 times per day; 30 tablet; Refills: 0, Product cp Selection Permitted Addendum: 09/20/2023 20:05 Co-signature as Attending Physician, Oscar Dubose MD I agree with the assessment s p4 and plan of care. I reviewed the patient's care provided by the Advanced Practice Provider and agree with the diagnosis and treatment plan. Signatures: Dispatcher [employer] EDNH Hermelindo Barreto PA PA cp Calixto Evans, WALTER RN Justin Gurrola RN RN as6 Oscar Dubose MD MD sp4 Corrections: (The following items were deleted from the chart) 09/16 03:04 02:12 Guillermo wrap-joint ordered. cp bp 03:04 02:12 Crutches ordered. cp bp 23:28 01:20 Context: while walking down stairs, , cp cp
[2023-09-16 03:45] VITALS: TEMP 98
[2023-09-16 03:48] VITALS: BP 110/79; O2SAT 98
--- NOTE | 2023-09-16 20:52 | RAD REPORT ---
EXAM DESCRIPTION: RAD - Knee Left 3 View - 09/16/2023 1:19 am CLINICAL HISTORY: The patient is 32 years old and is Male; PAIN Bed Name: 5 TECHNIQUE: Three views of the left knee. COMPARISON: No relevant prior studies available. FINDINGS: BONES/JOINTS: Small superior patellar enthesophyte noted. No dislocation. No joint effusion. No acute fracture. No suspicious lytic or blastic bone lesion. SOFT TISSUES: Unremarkable. IMPRESSION: No acute findings in the left knee. Electronically signed by: Wilberto Aaron MD 09/16/2023 01:26 AM [employer]AGON [employer] SALESPERSON Due to temporary technical issues with the PACS/Fluency reporting system, reports are being signed by the in house radiologists without review as a courtesy to insure prompt reporting. The interpreting radiologist is fully responsible for the content of the report.
== END 2023-09-16 03:05 | disposition home or self-care (01) ==
LOC: ER 23:57
DX: M25.562 Pain in left knee (principal); Z88.5 Allergy status to narcotic agent
CPT/HCPCS: 96372; 99284

== ENCOUNTER 2024-11-27 08:04 | Emergency (ER) | payer OTHER ==
--- OUTSIDE RECORDS SUMMARY | 2024-11-27 08:08 | XMS REPORT | Continuity of Care Document ---
Author Name Unknown Address [address] [place] [address] [facility] Address [address] [place] [address] Care Team Providers [employer] Information Clerk Name Role Phone Kayden Espinal Primary Care Physician ARIK CHEEMA Attending Clinician Unavailable EFRAÍN PARK Attending Clinician Unava ilable Payers Payer Name Policy Type Policy Number Effective Date Expirati on Date Source AETNA MP [facility] 5 O BEHAVIORAL PSYCHOLOGIST 94 ON 9 [id number] 2023 00:00:00 AETNA 2 [id number] 2023 00:00:00 Problems Condition Name Condition Details Condition Category Status Onset Date Resolution Date Last Treatment Date Treating Clinician Comments Source Anxiety Anxiety Disease Active 11-17 00:00: 00 Sonai balderrama Panic attack Panic attack Disease Active 11-17 00:00: 00 Sonia balderrama PTSD (post-trau matic stress disorder) PTSD (post-trau matic stress disorder) Disease Active 11-17 00:00: 00 Sonia Carr - Externa l History of syphilis History of syphilis Disease Active 11-17 00:00: 00 Sonia Kerra l Family history of skin cancer Family history of skin cancer Disease Active 11-17 00:00: 00 Sonia Solisold - Externa l Allergies, Adverse Reactions, Alerts Allergy Name Allergy Type Status Severity Reaction(s) Onset Date Inactive Date Treating Clinician Comments Source Apap-Fd& C Blue #1-Eden codone Propensi ty to adverse reaction s Active Other 11-16 00:00: 00 Headache Sonia Carr - Ciriloa l Social History Social Habit Start Date Stop Date Quantity Comments Source Sexual orientation 2023-11-05 15:36:38 Bisexual (finding) Sonia Carr - External History of tobacco use Cigarette Smoker Sonia wakefield - External Alcohol intake 2023-11-17 00:00:00 2023-11-17 00:00:00 Current drinker of alcohol (finding) Sonia Carr - External Education - What is the highest level of school you have completed or the highest degree you have received? 2023-11-17 00:00:00 2023-11-17 00:00:00 9th grade Sonia Carr - External Alcohol Comment 2023-11-17 00:00:00 2023-11-17 00:00:00 rarely Sonia Carr - External Cigarettes smoked current (pack per day) - Reported 2023-11-17 00:00:00 2023-11-17 00:00:00 Sonia Carr - External Cigarette pack-years 2023-11-17 00:00:00 2023-11-17 00:00:00 Sonia Carr - External Tobacco use and exposure 2023-11-17 00:00:00 2023-11-17 00:00:00 Smokeless tobacco non-user Sonia Carr - External History of Social function 2023-11-16 00:00:00 2023-11-16 00:00:00 Sonia Carr - External Sex Assigned At 1990 00:00:00 1990 00:00:00 M Sonia Carr - External Smoking Status Start Date Stop Date Source Smokes tobacco daily 2023-11-17 00:00:00 Sonia Carr - External Medications Ordered Medication Name Filled Medication Name Start Date Stop Date Current Medication? Ordering Clinician Indication Dosage Frequency Signature (SIG) Comments Components Source erythromyci n 5 mg/gram (0.5 %) eye ointment 07-14 00:00: 00 Yes 1(0.5 %) Joe Mcknight busPIRone HCl 15 MG oral Tablet 11-17 00:00: 00 Yes [id number] 15mg Take 1 tablet (15 mg total) by mouth 2 times daily. Sonia Carr - Externa l BUSPIRONE 15MG 11-17 00:00: 00 Yes Joe Mcknight TAKE 10 ML EVERY 4-6 HOURS NEEDED FOR COUGH AND CONGESTION 2022-11 00:00: 00 02-01 00:00 :00 No [id number] Joe Mcknight DICLOFENAC SODIUM 1 % GEL 2022-11 00:00: 00 Yes Joe Mcknight TAKE 1 TABLET TWICE A DAY NEEDED 2022-11 00:00: 00 02-01 00:00 :00 No 500 Joe Mcknight APPLY SPARINGLY TO THE AFFECTED AREA(S) TWICE DAILY. 2022-11 00:00: 00 02-01 00:00 :00 No 3 Joe Mcknight TAKE 1 TABLET BY MOUTH TWICE A DAY 2022-11 00:00: 00 02-01 00:00 :00 No 75 Joe Mkcnight Vital Signs Vital Name Observation Time Observation Value Comments S ource Systolic blood pressure 2023-11-17 17:28:00 104 mm[Hg] Sonia Mustafa ld - External Diastolic blood pressure 2023-11-17 17:28:00 60 mm[Hg] Sonia Mustafa ld - External Heart rate 2023-11-17 17:28:00 55 /min Codi Carr - External Body temperature 2023-11-17 17:28:00 36.89 Carmen Sonia Carr - External Respiratory rate 2023-11-17 17:28:00 21 /min Sonia Carr - External Body height 2023-11-17 17:28:00 185.4 cm Lisset ey Seybold - External Body weight 2023-11-17 17:28:00 102.513 kg Lisset mckenna Seybold - External BMI 2023-11-17 17:28:00 29.82 kg/m2 Lisset mckenna Seybold - External Oxygen saturation in Arterial blood by Pulse oximetry 2023-11-17 17:28:00 96 /min Sonia Mustfaa ld - External BP Systolic 2024-07-14 15:42:00 115 mm[Hg] Step hen F Juan Luis BP Diastolic 2024-07-14 15:42:00 79 mm[Hg] Ivan phen F Juan Luis Weight Measured 2024-07-14 15:42:00 228.40 pounds Joe F Juan Luis Height Measured 2024-07-14 15:42:00 73.20 inches Joe F Juan Luis Body Temperature 2024-07-14 15:42:00 98.10 degrees Joe F Juan Luis Heart Rate 2024-07-14 15:42:00 59.00 /min Vashti en F Juan Luis Respiratory Rate 2024-07-14 15:42:00 16.00 /min Joe F Juan Luis BP Systolic 2023-10-08 09:06:00 131 mm[Hg] Step hen F Juan Luis BP Diastolic 2023-10-08 09:06:00 80 mm[Hg] Ivan phen F Juan Luis Weight Measured 2023-10-08 09:06:00 230.60 pounds Joe F Juan Luis Height Measured 2023-10-08 09:06:00 73.20 inches Joe F Juan Luis Body Temperature 2023-10-08 09:06:00 98.30 degrees Joe F Juan Luis Heart Rate 2023-10-08 09:06:00 59.00 /min Vashti en F Juan Luis Respiratory Rate 2023-10-08 09:06:00 19.00 /min Joe F Juan Luis BP Systolic 2023-10-05 14:44:00 129 mm[Hg] Step hen F Juan Luis BP Diastolic 2023-10-05 14:44:00 69 mm[Hg] Iavn phen F Juan Luis Weight Measured 2023-10-05 14:44:00 230.60 pounds Joe F Juan Luis Height Measured 2023-10-05 14:44:00 73.20 inches Joe F Juan Luis Body Temperature 2023-10-05 14:44:00 98.20 degrees Joe F Juan Luis Heart Rate 2023-10-05 14:44:00 62.00 /min Vashti en F Juan Luis Respiratory Rate 2023-10-05 14:44:00 Joe F Juan Luis Respiratory Rate 2023-10-01 13:25:00 19.00 /min Joe F Juan Luis BP Systolic 2023-10-01 13:25:00 131 mm[Hg] Step hen F Juan Luis BP Diastolic 2023-10-01 13:25:00 77 mm[Hg] Ivan phen F Juan Luis Weight Measured 2023-10-01 13:25:00 221.80 pounds Joe F Juan Luis Height Measured 2023-10-01 13:25:00 73.20 inches Joe F Juan Luis Body Temperature 2023-10-01 13:25:00 98.00 degrees Joe F Juan Luis Heart Rate 2023-10-01 13:25:00 102.00 /min Step hen F Juan Luis BP Systolic 2023-09-27 10:28:00 117 mm[Hg] Step hen F Juan Luis BP Diastolic 2023-09-27 10:28:00 73 mm[Hg] Ivan phen F Juan Luis Weight Measured 2023-09-27 10:28:00 226.40 pounds Joe F Juan Luis Height Measured 2023-09-27 10:28:00 73.20 inches Joe F Juan Luis Body Temperature 2023-09-27 10:28:00 98.20 degrees Joe F Juan Luis Heart Rate 2023-09-27 10:28:00 59.00 /min Vashti en F Juan Luis Respiratory Rate 2023-09-27 10:28:00 Joe F Juan Luis BP Systolic 2023-09-16 14:51:00 130 mm[Hg] Step hen F Juan Luis BP Diastolic 2023-09-16 14:51:00 75 mm[Hg] Ivan phen F Juan Luis Weight Measured 2023-09-16 14:51:00 229.00 pounds Joe F Juan Luis Height Measured 2023-09-16 14:51:00 73.20 inches Joe F Juan Luis Body Temperature 2023-09-16 14:51:00 98.00 degrees Joe F Juan Luis Heart Rate 2023-09-16 14:51:00 67.00 /min Vashti en F Juan Luis Respiratory Rate 2023-09-16 14:51:00 Joe F Juan Luis Encounters Start Date/Time End Date/Time Encounter Type Admission Type Attending [facility] Care Department Encounter ID Source 2024-07-14 15:32:14 2024-07-14 15:32:14 Outpatient SFA SFA [id number] Joe Mcknight 2024-07-14 00:00:00 2024-07-14 00:00:00 Outpatient Visit SFA [id number] Joe Mcknight 2024-04-12 00:00:00 2024-04-12 00:00:00 Outpatient PREGISELLEARIK SONIA BRICEÑO [id number] [facility] 2024-01-24 14:30:00 2024-01-24 14:30:00 Outpatient PREZASammi ARIK SONIA BRICEÑO [id number] [facility] 2024-01-07 08:45:00 2024-01-07 08:45:00 Outpatient EFRAÍN PARK [id number] [facility] 2023-12-26 00:00:00 2023-12-26 00:00:00 Outpatient PREZASammi ARIK BRICEÑO [id number] [facility] 2023-12-16 11:30:00 2023-12-16 11:30:00 Outpatient PREZAARIK Chapa SONIA BRICEÑO [id number] [facility] 2023-11-17 11:15:00 2023-11-17 11:15:00 Outpatient PREZASammi ARIK BRICEÑO [id number] [facility] 2023-11-08 15:30:00 2023-11-08 15:30:00 Outpatient PREZAARIK Chapa SONIA BRICEÑO [id number] [facility] 2023-10-22 13:19:17 2023-10-22 13:19:17 Outpatient SFA SFA [id number] Joe Mcknight 2023-10-15 10:30:08 2023-10-15 10:30:08 Outpatient SFA SFA [id number] Joe Mcknight 2023-10-08 09:01:56 2023-10-08 09:01:56 Outpatient SFA SFA [id number] Joe Mcknight 2023-10-05 14:36:55 2023-10-05 14:36:55 Outpatient [facility] [id number] Joe Mcknight 2023-10-01 13:46:03 2023-10-01 13:46:03 Outpatient [facility] [id number] Joe Mcknight 2023-09-16 14:46:02 2023-09-16 14:46:02 Outpatient [facility] [id number] Joe Mcknight Results Test Description Test Time Test Comments Results Result Co mments Source T. PALLIDUM - PA [REFLEX]2023-10-06 00:00:00* Test Item Value Reference Range Interpretation Comme nts T. PALLIDUM - PA (test code = 81534) REACTIVE Joe McknightCT/NG, NAAT, [id number] 17:29:23* Test Item Value Reference Range Interpretation Comme nts CHLAMYDIA, NAAT, URINE (test code = 13904) NEGATIVE NEGATIVE Testing is perfo rmed with Do ORA 6800/8800 systems usingreal-time polymerase chain reaction (PCR) method. A negative result does not exclude low level infection, specimensampling error, or collection error. GONORRHEA, NAAT, URINE (test code = 21573) NEGATIVE NEGATIVE Testing is perfo rmed with Do ORA 6800/8800 systems usingreal-time polymerase chain reaction (PCR) method. A negative result does not exclude low level infection, specimensampling error, or collection error. CT/NG, TMA, [id number] 00:00:00* Test Item Value Reference Range Interpretation Comme nts CHLAMYDIA, NAAT, URINE (test code = 65092) NEGATIVE GONORRHEA, NAAT, URINE (test code = 08933) NEGATIVE Joe McknightRPR REFLEX TO T. PALLIDUM - [id number] 05:10:20* Test Item Value Reference Range Interpretation Comme nts RPR (test code = 16118) REACTIVE NON-REACTIVE A SCREENING RPR RE ACTIVE. SEE BELOW FOR REFLEX TP-PA RPR TITER (test code = 3500) 1:32 TITER NOT INDIC. H HEPATITIS PANEL, [id number] 03:46:38* Test Item Value Reference Range Interpretation Comme nts HEPATITIS A IgM (test code = 93714) NON-REACTIVE NON-REACTIVE HEPATITIS B CORE IgM (test code = 4644) NON-REACTIVE NON-REACTIVE HEPATITIS B SURF AG (test code = 2739) NON-REACTIVE NON-REACTIVE HEPATITIS C ANTIBODY (test code = 4675) NON-REACTIVE NON-REACTIVE INTERPRETATION HEPATITIS A: (test code = 2552) (NOTE) Hepatitis A serology shows no evidence of acute hepatitis A. INTERPRETATION HEPATITIS B: (test code = 78611) (NOTE) Hepatitis B serology shows no evidence of acute hepatitis B andno indication of exposure to hepatitis B virus in the previous colten eight months. INTERPRETATION HEPATITIS C: (test code = 46659) (NOTE) Hepatitis C serology shows no evidence of exposure to hepatitisC virus at this time. It can take up to 12 months after exposure tothe hepatitis C virus for antibodies to become detectable in the blood in certain patients. HIV 1/2 4TH GEN, RFLX [id number] 03:46:38* Test Item Value Reference Range Interpretation Comme nts HIV 1/2 4TH GEN, RFLX CONF ( test code = 3514) NON-REACTIVE NON-REACTIVE HIV AB/AG COMBO RFLX [id number] 00:00:00* Test Item Value Reference Range Interpretation Comme nts HIV 1/2 4TH GEN, RFLX CONF ( test code = 3514) NON-REACTIVE Joe McknightRPR REFLEX TO T. PALLIDUM - [id number] 00:00:00* Test Item Value Reference Range Interpretation Comme nts RPR (test code = 75475) REACTIVE RPR TITER (test code = 3500) 1:32 TITER Joe McknightACUTE HEPATITIS [id number] 00:00:00* Test Item Value Reference Range Interpretation Comme nts HEPATITIS A IgM (test code = 43726) NON-REACTIVE HEPATITIS B CORE IgM (test c ode = 4644) NON-REACTIVE HEPATITIS B SURF AG (test co de = 2739) NON-REACTIVE HEPATITIS C ANTIBODY (test c ode = 4675) NON-REACTIVE INTERPRETATION HEPATITIS A: (test code = 2552) (NOTE) INTERPRETATION HEPATITIS B: (test code = 82132) (NOTE) INTERPRETATION HEPATITIS C: (test code = 94177) (NOTE) Joe Mcknight
--- NOTE | 2024-11-27 08:33 | EDPHYS ---
Physician Documentation [facility] Name: Harmeet Calderón Age: 33 yrs Sex: Male : 1990 Arrival Date: 11/27/2024 Time: 08:04 Bed IW2 Private MD: ED Physician Aaron Fox HPI: 11/27 08:38 This 33 yrs old Male presents to ER via Ambulatory with complaints of Sore dr5 Throat. 08:38 The patient presents with sore throat. Onset: The symptoms/episode began/occurred 2 dr5 day(s) ago. Patient is a 33-year-old male with no possible history coming in with sore throat does been going on for 2 days with subjective fevers at home. Patient reports he might have been exposed to strep. Patient denies nausea, vomiting, diarrhea, cough, congestion.. Historical: - Allergies: 08:31 [place]; ss - PMHx: 08:31 Anxiety; meningitis; panic attack; ss - PSHx: 08:31 face surgery; head surgery; knee surgery; Left Hip Sx; ss - Immunization history:: Client reports having NOT received the Covid vaccine. - Infectious Disease History:: Denies. - Social history:: Smoking status: Patient reports the use of cigarette tobacco products, smokes one-half pack cigarettes per day. ROS: 08:38 Constitutional: as per hpi dr5 Exam: 08:38 Constitutional: This is a well developed, well nourished patient who is awake, alert, dr5 and in no acute distress. Head/Face: Normocephalic, atraumatic. Eyes: Pupils equal round and reactive to light, extra-ocular motions intact. Lids and lashes normal. Conjunctiva and sclera are non-icteric and not injected. Cornea within normal limits. Periorbital areas with no swelling, redness, or edema. Neck: Trachea midline, no thyromegaly or masses palpated, and no cervical lymphadenopathy. Supple, full range of motion without nuchal rigidity, or vertebral point tenderness. No Meningismus. Chest/axilla: Normal chest wall appearance and motion. Nontender with no deformity. No lesions are appreciated. Cardiovascular: Regular rate and rhythm with a normal S1 and S2. Normal PMI, no JVD. No pulse deficits. Respiratory: Lungs have equal breath sounds bilaterally, clear to auscultation. No rales, rhonchi or wheezes noted. No increased work of breathing, no retractions or nasal flaring. Back: No spinal tenderness. No costovertebral tenderness. Full range of motion. Skin: Warm, dry with normal turgor. Normal color with no rashes, no lesions, and no evidence of cellulitis. MS/ Extremity: Pulses equal, no cyanosis. Neurovascular intact. Full, normal range of motion. Neuro: Awake and alert, GCS 15, oriented to person, place, time, and situation. Cranial nerves II-XII grossly intact. Motor strength 5/5 in all extremities. Sensory grossly intact. Cerebellar exam normal. Normal gait. 08:38 ENT: External ear(s): are unremarkable, Ear canal(s): are normal, TM's: are normal, Nose: is normal, Mouth: is normal, Posterior pharynx: Airway: normal, Tonsils: bilaterally enlarged, with exudate, Vital Signs: 08:31 BP 139 / 84; Pulse 99; Resp 16; Temp 98.6(O); Pulse Ox 98% on R/A; Weight 99.79 kg; ss Height 6 ft. 0 in. ; Pain 2/10; 08:31 Body Mass Index 29.84 (99.79 kg, 182.88 cm) ss 08:31 Pain Scale: Adult ss MDM: 08:13 Medical Screening Exam initiated dr5 08:38 Differential diagnosis: upper respiratory infection, Tonsillitis, strep. Data reviewed: dr5 vital signs, nurses notes. Care significantly affected by the following Social Determinants of Health: Poor access to healthcare and/or lack of insurance, Poor access to transportation, Problems related to employment. Counseling: I had a detailed discussion with the patient and/or guardian regarding the historical points, exam findings, and any diagnostic results supporting the discharge/admit diagnosis, the presence of at least one elevated blood pressure reading (>120/80) during this emergency department visit, the need for outpatient follow up, for definitive care, an ENT specialist, a family practitioner. ED course: strep swab sent. Will treat for tonsillitis with amoxicillin 500 mg and steroid dose pack. Recommended alternating Tylenol Motrin as needed for fever. Increase hydration. Work note given. All questions answered. 11/27 08:32 Order name: Strep dr5 Administered Medications: No medications were administered Disposition: 17:23 Co-signature as Attending Physician, Aaron Fox MD I reviewed the patient's care rn provided by the Advanced Practice Provider and agree with the diagnosis and treatment plan. Disposition Summary: 11/27/24 08:33 Discharge Ordered Notes: Location: Home dr5 Condition: Stable dr5 Diagnosis - Acute tonsillitis, unspecified dr5 Followup: dr5 - With: Emergency Department - When: As needed - Reason: Worsening of condition Followup: dr5 - With: Private Physician - When: 1 - 2 days - Reason: Recheck today's complaints, Continuance of care, Re-evaluation by your physician Discharge Instructions: - Discharge Summary Sheet dr5 - Tonsillitis dr5 Forms: - Work release form dr5 - Medication Reconciliation Form dr5 - Antibiotic Education dr5 - Patient Portal Instructions dr5 - Leadership Thank You Letter dr5 Prescriptions: - Amoxicillin 500 mg Oral capsule - take 1 capsule ORAL route 2 times per day for 10 days; 20 tablet; Refills: 0, dr5 Product Selection Permitted - Medrol (Marco) 4 mg Oral Tablets, Dose Pack - take 1 tablet ORAL route as directed - follow package instructions; 1 packet; dr5 Refills: 0, Product Selection Permitted Signatures: Dispatcher [employer] EDAaron Tineo MD MD rn Blanchard, Shelby, RN RN ss Rhodes, Dustin, PRODUCTION BORING MACHINE OPERATOR-C PRODUCTION BORING MACHINE OPERATOR-Cdr5
--- NOTE | 2024-11-27 08:33 | ER ---
Nurse's Notes [facility] Name: Harmeet Calderón Age: 33 yrs Sex: Male : 1990 Arrival Date: 11/27/2024 Time: 08:04 Bed IW2 Private MD: Diagnosis: Acute tonsillitis, unspecified Presentation: 11/27 08:31 Chief complaint: Patient states: sore throat that began yesterday. Coronavirus screen: ss Client denies travel out of the [place] in the last 14 days. Ebola Screen: Patient denies exposure to infectious person. Patient denies travel to an Ebola-affected area in the 21 days before illness onset. Initial Sepsis Screen: Does the patient meet any 2 criteria? No. Patient's initial sepsis screen is negative. Does the patient have a suspected source of infection? No. Patient's initial sepsis screen is negative. Risk Assessment: Do you want to hurt yourself or someone else? Patient reports no desire to harm self or others. Onset of symptoms was November 26, 2024. 08:31 Method Of Arrival: Ambulatory ss 08:31 Acuity: WILFRID 4 ss Historical: - Allergies: 08:31 [place]; ss - PMHx: 08:31 Anxiety; meningitis; panic attack; ss - PSHx: 08:31 face surgery; head surgery; knee surgery; Left Hip Sx; ss - Immunization history:: Client reports having NOT received the Covid vaccine. - Infectious Disease History:: Denies. - Social history:: Smoking status: Patient reports the use of cigarette tobacco products, smokes one-half pack cigarettes per day. Screenin:33 Abuse screen: Denies threats or abuse. Denies injuries from another. Nutritional ss screening: No deficits noted. Tuberculosis screening: Never had TB. Assessment: 08:33 General: Appears uncomfortable, Behavior is calm, cooperative. General: Reports feeling ss ill for 1-2 days. Pain: Complains of pain in throat Pain currently is 2 out of 10 on a pain scale. at worst was 8 out of 10 on a pain scale. Neuro: Level of Consciousness is awake, alert, obeys commands, Oriented to person, place, time, situation. Respiratory: Airway is patent Respiratory effort is even, unlabored, Respiratory pattern is regular, symmetrical. EENT: Throat is reddened on right. Derm: Skin is pink, warm \T\ dry. normal. Vital Signs: 08:31 BP 139 / 84; Pulse 99; Resp 16; Temp 98.6(O); Pulse Ox 98% on R/A; Weight 99.79 kg; ss Height 6 ft. 0 in. ; Pain 2/10; 08:31 Body Mass Index 29.84 (99.79 kg, 182.88 cm) ss 08:31 Pain Scale: Adult ss ED Course: 08:08 Patient arrived in ED. sj2 08:12 [place] Mahajan FNP-C [facility] dr5 08:12 Aaron Fox MD is Attending Physician. dr5 08:31 Arm band placed on right wrist. ss 08:33 Triage completed. ss 08:33 Patient has correct armband on for positive identification. ss 08:39 Naila Guerrero, RN is Primary Nurse. ss 08:39 No provider procedures requiring assistance completed. Patient did not have IV access ss during this emergency room visit. Administered Medications: No medications were administered Medication: 08:33 VIS not applicable for this client. ss Outcome: 08:33 Discharge ordered by . dr5 08:39 Discharged to home ambulatory, ss 08:39 Condition: good 08:39 Discharge instructions given to patient, Instructed on discharge instructions, follow up and referral plans. medication usage, Demonstrated understanding of instructions, follow-up care, medications, Prescriptions given X 2, 08:39 Patient left the ED. ss Signatures: Naila Guerrero, RN RN Onur Benson 2 Dallas Mahajan FNP-C TELEPHONIC NURSE-Cdr5
[2024-11-27 11:11] VITALS: BP 139/84; TEMP 98.6; O2SAT 98
== END 2024-11-27 08:39 | disposition home or self-care (01) ==
LOC: ER 08:04
DX: J03.90 Acute tonsillitis, unspecified (principal); F17.210 Nicotine dependence, cigarettes, uncomplicated
CPT/HCPCS: 87070; 87081; 99283